=== PATIENT | female | born 2000 | race Caucasian/White ===

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

== ENCOUNTER 2024-04-12 13:24 | Emergency (ER) | payer MEDICAID, SELFPAY | END 2024-04-12 15:00 | disposition home or self-care (01) | LOC: NAV ERS 13:24 | DX: B34.9 Viral infection, unspecified (principal); F17.210 Nicotine dependence, cigarettes, uncomplicated | CPT/HCPCS: 87428; 99283 ==